=== PATIENT | female | born 1980 | race American Indian/Alaskan Native ===

== ENCOUNTER 2016-04-22 09:06 | Outpatient (CLI) | payer MEDICARE ==
--- NOTE | 2016-04-22 15:44 | Ultrasound Report ---
TRANSABDOMINAL AND TRANSVAGINAL PELVIC ULTRASOUND: 04/22/16 09:06:00 CLINICAL: Pelvic and perineal pain. FINDINGS: Transabdominal and transvaginal pelvic ultrasound demonstrated a normal small uterus measuring 7.9 x 3.3 x 5.1 cm. Normal uterine contour and echogenicity. The endometrium is normal and measures 5.3 mm AP thickness. Normal right ovary with small follicles. The right ovary measures 3.0 x 2.6 x 2.7cm. A left ovary was not identified. No adnexal mass. No free fluid. Normal urinary bladder. IMPRESSION: Normal uterus and right ovary. No left ovary identified.
== END 2016-04-22 09:07 | disposition home or self-care (01) ==
LOC: SPVWC 09:06
PROVIDERS: ATTEND Family Medicine
DX: R10.2 Pelvic and perineal pain (principal)
CPT/HCPCS: 76830; 76856

== ENCOUNTER 2019-06-27 14:48 | Outpatient (CLI) | payer MEDICARE ==
--- NOTE | 2019-06-27 16:30 | XRay Report ---
CHEST PA AND LATERAL VIEWS INDICATION: CHEST PAIN. COMPARISON: None FINDINGS: Support devices: None Heart: Normal Lungs/Pleura: No acute pulmonary or pleural findings. IMPRESSION: 1. No significant abnormality. Signer Name: Onur Matamoros MD Signed: 06/27/2019 4:26 PM Workstation Name: [id number]
== END 2019-06-27 14:49 | disposition home or self-care (01) ==
LOC: XRAY 14:48
PROVIDERS: ATTEND Urology
DX: R07.9 Chest pain, unspecified (principal)
CPT/HCPCS: 71046